=== PATIENT | male | born 1945 | race Caucasian/White ===

== ENCOUNTER 2016-09-27 05:36 | Emergency (ER) | payer BC, OTHER ==
[~2016-09-27] VITALS: Ht 180.3 cm; Wt 84.8 kg
[2016-09-27] MEDS ORDERED: METHYLENE BLUE 0.5% 5MG/ML 10ml AMP IV ONE (06:53)
[2016-09-27] MEDS ORDERED: BUPIVACAINE 0.25% INJ 50ML VIAL ONE (06:53)
[2016-09-27] MEDS ORDERED: LIDOCAINE W/ EPINEPHRINE 1 % INJ 30ML ONE (06:53)
[2016-09-27 07:05] LABS: Urine Bilirubin Negative (Negative); Urine Blood Negative /uL (Negative); Urine Color Yellow (Yellow); Urine Glucose Normal (Normal); Urine Ketone Negative (Negative); Urine Nitrite Negative (Negative); Urine RBC <1 /hpf (0 - 3); Urine Squamous Epithelial Cell FEW /hpf (<5); Urine Urobilinogen Normal (Negative)
[2016-09-27 07:20] LABS: Basophils # (auto) 0 uL; Basophils % (auto) 0.6 % (0.0-2.0); CONDITION Y; Eosinophils # (auto) 0.3 uL; Eosinophils % (auto) 5.6 % (0.0-7.0); Hematocrit 44.6 % (41.0-53.0); Hemoglobin 14.8 g/dL (13.5-17.5); Lymphocytes # (auto) 1.3 uL; Lymphocytes % (auto) 24.4 % (10.0-50.0); Mean Corpuscular Hemoglobin 30.9 pg (28.0-32.0); Mean Corpuscular Hgb Conc. 33.3 g/dL (32.0-36.0); Mean Corpuscular Volume 92.8 fL (80.0-100.0); Mean Platelet Volume 8.4 fL (7.4-10.4); Monocytes # (auto) 0.7 uL; Monocytes % (auto) 12.5 % (0.0-12.0); Neutrophils # (auto) 3.1 uL; Neutrophils % (auto) 56.9 % (37.0-80.0); Platelet Count (auto) 273 10^3/uL (140-450); Red Cell Distribution Width 14.8 % (11.6-16.0); White Blood Cell 5.5 10^3/uL (4.4-10.8)
[2016-09-27 07:39] LABS: Potassium 4.8 mmol/L (3.5-5.1)
[2016-09-27 07:40] LABS: INR 0.97 (0.9-1.15); Partial Thromboplastin Time 26.8 sec (22.64-33.71); Prothrombin Time 10.6 sec (9.37-12.3)
[2016-09-27 07:44] LABS: Albumin 3.5 g/dL (3.4-5.0); BUN/Creatinine Ratio 25.3; Calcium 8.1 mg/dL (8.5-10.1)
[2016-09-27 07:47] LABS: Bilirubin, Total 0.4 mg/dL (0.2-1.0); Total Protein 6.9 g/dL (6.4-8.2)
[2016-09-27 08:00] VITALS: BP 145/97
== END 2016-09-27 08:03 | disposition home or self-care (01) ==
LOC: ER 05:36
DX: R04.0 Epistaxis (principal); M19.90 Unspecified osteoarthritis, unspecified site; E78.5 Hyperlipidemia, unspecified; I25.2 Old myocardial infarction
CPT/HCPCS: 36415; 80053; 81001; 85025; 85610; 85730; 93005; 99285; J2001; J3490; Q9968

== ENCOUNTER 2018-04-28 08:22 | Inpatient (IN) | payer MEDICARE, OTHER ==
[~2018-04-28] VITALS: Ht 180.3 cm; Wt 81.6 kg
[2018-04-28 09:24] LABS: Basophils # (auto) 0 uL; Basophils % (auto) 0.5 % (0.0-2.0); Eosinophils # (auto) 0.1 uL; Hematocrit 47.7 % (41.0-53.0); Hemoglobin 15.7 g/dL (13.5-17.5); Lymphocytes # (auto) 0.8 uL; Lymphocytes % (auto) 18.3 % (10.0-50.0); Mean Corpuscular Volume 94.1 fL (80.0-100.0); Monocytes # (auto) 0.4 uL; Neutrophils # (auto) 3.2 uL; Neutrophils % (auto) 70.2 % (37.0-80.0); Nucleated Red Blood Cells % 0.2 %; Platelet Count (auto) 249 10^3/uL (140-450); Red Blood Cells 5.07 10^6/uL (4.5-5.90); Red Cell Distribution Width 13.9 % (11.8-14.3); White Blood Cell 4.5 10^3/uL (4.4-10.8)
[2018-04-28 09:27] LABS: INR 0.96 (0.9-1.15); Partial Thromboplastin Time 27.5 sec (23.78-33.04); Prothrombin Time 10.3 sec (9.27-12.13)
[2018-04-28 09:34] LABS: Alanine Aminotransferase 34 U/L (16-61); Albumin 3.8 g/dL (3.4-5.0); Anion Gap 8 (5-15); Aspartate Aminotransferase 31 U/L (15-37); BUN/Creatinine Ratio 17.2; Blood Urea Nitrogen 17 mg/dL (7-18); Calcium 8.3 mg/dL (8.5-10.1); Carbon Dioxide 25 mmol/L (21-32); Chloride 103 mmol/L (98-107); GFR African American > 60 mL/min; GFR Non-African American > 60 mL/min; Glucose 169 mg/dL (74-106); Magnesium 2.1 mg/dL (1.6-2.6); Potassium 4.3 mmol/L (3.5-5.1); Sodium 136 mmol/L (136-145)
[2018-04-28 09:39] LABS: Alkaline Phosphatase 108 U/L (45-117); Bilirubin, Total 0.6 mg/dL (0.2-1.0); Total Protein 7.6 g/dL (6.4-8.2)
[2018-04-28] MEDS ORDERED: traZODone HCL 50 MG TAB PO SCH ×2 (10:00→22:00)
[2018-04-28] MEDS ORDERED: NITROGLYCERIN 0.4 MG SL TAB SL PRN (11:00)
[2018-04-28] MEDS ORDERED: HYDROcodone-ACET 5/325MG TAB PO PRN (11:00)
[2018-04-28] MEDS ORDERED: ONDANSETRON HCL 4 MG/2 ML VIAL IV PRN (11:00)
[2018-04-28] MEDS ORDERED: DEXTROSE (50%) 50ML SYRG IV PRN (11:00)
[2018-04-28] MEDS ORDERED: MORPHINE SULFATE 10 MG/ML INJ 1ML SDV IV PRN ×2 (11:00)
[2018-04-28] MEDS ORDERED: MELO1TAB56 PO (11:03)
[2018-04-28] MEDS ORDERED: HYDR-4924 PO (11:03)
[2018-04-28] MEDS ORDERED: TRAZ100T2 PO (11:03)
[2018-04-28] MEDS ORDERED: LOSA25TA40 PO (11:03)
[2018-04-28] MEDS ORDERED: GABA300C10 PO (11:03)
[2018-04-28] MEDS ORDERED: GLIP-115 PO (11:03)
[2018-04-28] MEDS ORDERED: TAMS0.4C36 PO (11:03)
[2018-04-28] MEDS ORDERED: ATOR20TA50 PO (11:03)
[2018-04-28] MEDS ORDERED: MELA3TAB27 PO (11:03)
[2018-04-28] MEDS ORDERED: VENL75TA PO (11:03)
[2018-04-28] MEDS: InsuLIN REG 1unit/0.01ml Soln (100units/ml) SC SCH ×3 (12:00→22:00)
[2018-04-28] MEDS ORDERED: VENLAFAXINE HCL 37.5MG TABLET PO SCH (12:00)
[2018-04-28] MEDS: ACCU-CHEK COMFORT CURVE STRIP VI SCH ×3 (12:00→22:00)
[2018-04-28] MEDS: GABAPENTIN 300 MG CAP PO SCH ×2 (14:11→23:08)
--- NOTE | 2018-04-28 14:40 | NUR ---
Telemetry admit from ER MARISELTOREY admitted to Telemetry unit after SBAR received. Patient oriented to Marycarmen flynn RN, unit, room, bed, and unit policies regarding patient care and visiting hours. Patient now on continuous telemetry monitoring, tele box # 21 and telemetry reading on arrival to unit is SINUS RHYTHM IN THE 60'S. Patient weighed by bedscale and encouraged to call if they need something. All questions and concerns addressed, patient verbalized understanding.
[2018-04-28 17:00] VITALS: BP 140/75
[2018-04-28 17:01] VITALS: BP 142/78
--- NOTE | 2018-04-28 18:00 | NUR ---
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
--- NOTE | 2018-04-28 18:10 | NUR ---
SPOKE TO SHAHRAM LOMELI NP. ORDERS TO CONTACT DR LATIF.
--- NOTE | 2018-04-28 18:10 | NUR ---
PATIENT DENIES CHEST PAIN. AMBULATING IN THE HALLWAY WITH HIS .
--- NOTE | 2018-04-28 18:36 | NUR ---
SPOKE TO DOCTOR LATIF, AWARE OF ELEVATED TROPONIN. ORDERS FOR LOVENOX OBTAINED. WILL PLACE AND CARRY OUT.
[2018-04-28] MEDS ORDERED: ENOXAPARIN SOD 80 MG/0.8ML SYRINGE SC ONE (18:45)
[2018-04-28] MEDS ORDERED: ASPirin-EC 81 mg tab PO ONE (19:30)
--- NOTE | 2018-04-28 20:00 | NUR ---
open note assumed care of pt. awake and alert upon entering room. denied any pain, no s/s distress noted or expressed. pt updated on plan of care. pt aware of left heart cath procedure in the AM. no additional questions at this time. call light in reach. will continue to monitor.
[2018-04-28 22:00] VITALS: BP 127/84
[2018-04-28] MEDS ORDERED: ATORVASTATIN 20 MG TAB PO SCH (22:00)
[2018-04-28] MEDS: METOPROLOL TARTRATE 25 MG TAB PO SCH (23:08)
[2018-04-29 05:50] VITALS: BP 119/75
[2018-04-29] MEDS: InsuLIN REG 1unit/0.01ml Soln (100units/ml) SC SCH ×2 (06:28→11:30)
[2018-04-29] MEDS: ACCU-CHEK COMFORT CURVE STRIP VI SCH ×2 (06:28→11:27)
[2018-04-29] MEDS: GABAPENTIN 300 MG CAP PO SCH ×2 (06:28→13:31)
[2018-04-29 06:42] LABS: Albumin 3.4 g/dL (3.4-5.0); Anion Gap 4 (5-15); Blood Urea Nitrogen 16 mg/dL (7-18); Calcium 8.4 mg/dL (8.5-10.1); Carbon Dioxide 28 mmol/L (21-32); Chloride 107 mmol/L (98-107); Glucose 114 mg/dL (74-106); Magnesium 2.3 mg/dL (1.6-2.6); Potassium 4.2 mmol/L (3.5-5.1); Sodium 139 mmol/L (136-145)
[2018-04-29 06:47] LABS: Alanine Aminotransferase 38 U/L (16-61); Alkaline Phosphatase 95 U/L (45-117); Aspartate Aminotransferase 124 U/L (15-37); BUN/Creatinine Ratio 18.8; Bilirubin, Total 0.6 mg/dL (0.2-1.0); Cholesterol 169 mg/dL (< 200); GFR African American > 60 mL/min; GFR Non-African American > 60 mL/min; HDL Cholesterol 59 mg/dL (40-59); LDL Cholesterol 105 mg/dL (< 100); Total Protein 6.8 g/dL (6.4-8.2); Triglycerides 103 mg/dL (< 150)
[2018-04-29] MEDS ORDERED: IODIXANOL 320MG/ML 100ML BTL IV ONE ×2 (07:12→07:13)
[2018-04-29] MEDS ORDERED: LIDOCAINE 2%HCL (LOCAL ANESTH.) INJ 20ML MDV ONE (07:12)
--- NOTE | 2018-04-29 07:40 | NUR ---
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 patient bathed and shaved.
[2018-04-29 08:35] VITALS: BP 121/78
[2018-04-29] MEDS ORDERED: ANGIOMAX 250 MG VIAL IV ONE (08:51)
[2018-04-29] MEDS ORDERED: MIDAZOLAM HCL 1MG/1ML-2 ML VIAL ONE (08:51)
[2018-04-29] MEDS ORDERED: fentaNYL CITRATE 100 MCG/2 ML VL ONE (08:51)
[2018-04-29] MEDS ORDERED: SODIUM CHL 0.9% 50 ML ONE (08:52)
[2018-04-29] MEDS ORDERED: IOHEXOL 350 MG/ML 100ML IJ ONE (08:52)
[2018-04-29] MEDS ORDERED: CLOPIDOGREL 300 MG TAB ONE (09:28)
[2018-04-29] MEDS ORDERED: ASPirin 81 mg TAB ONE (09:31)
[2018-04-29] MEDS ORDERED: ASPirin-EC 81 mg tab PO SCH (10:00)
[2018-04-29] MEDS ORDERED: NITROGLYCERIN 0.4MG/HR TOPICAL PATCH TD SCH (10:00)
[2018-04-29] MEDS ORDERED: TAMSULOSIN HYDROCHLORIDE 0.4 MG CAP PO SCH (10:00)
[2018-04-29] MEDS ORDERED: CLOPIDOGREL BISULFATE 75 MG TAB PO SCH (10:00)
--- NOTE | 2018-04-29 10:25 | NUR ---
patient returned from recovery after having a heart cath, dressing is c-d-i, denies any pain, no sob, vs are stable, at bedside. pt verbalized understanding to remain in supine position until instructed per order.
--- NOTE | 2018-04-29 12:15 | NUR ---
patient alert and oriented x4 with no distress noted, dressing to right groin is c-d-i, ambulated to the restroom, denies any pain, no s/s of hematoma, site benign.
[2018-04-29 13:00] VITALS: BP 132/72
[2018-04-29] MEDS: METOPROLOL TARTRATE 25 MG TAB PO SCH (13:32)
[2018-04-29] MEDS ORDERED: ALUM & MAG HYDROX-SIMETH LIQ(MAALOX) 30 ML PO PRN (14:30)
[2018-04-29] MEDS ORDERED: CLOP75TA28 PO (14:39)
[2018-04-29] MEDS ORDERED: MET25T PO (14:39)
[2018-04-29] MEDS ORDERED: ATOR20TA50 PO (14:39)
[2018-04-29] MEDS ORDERED: ASP81EC PO (14:39)
[2018-04-29 14:59] VITALS: BP 133/71
--- NOTE | 2018-04-29 16:00 | NUR ---
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
--- NOTE | 2018-04-29 16:02 | NUR ---
patient discharged as ordered, via wheelchair, at bedside.
[2018-04-29] MEDS ORDERED: ATORVASTATIN 20 MG TAB PO SCH (22:00)
[2018-04-30] MEDS ORDERED: CLOPIDOGREL BISULFATE 75 MG TAB PO SCH (10:00)
== END 2018-04-29 14:05 | disposition home or self-care (01) | DRG 250 ==
LOC: ER 08:30 → OVERFLOW 09:50 → TELE-WESTW 14:40
PROVIDERS: ADMIT Nurse Practitioner Acute Care; ATTEND Internal Medicine
PROC: 02703ZZ Dilation of Coronary Artery, One Artery, Percutaneous Approach (ICD-10-PCS; principal; 2018-04-29)
PROC: 4A023N7 Measurement of Cardiac Sampling and Pressure, Left Heart, Percutaneous Approach (ICD-10-PCS; 2018-04-29)
PROC: B2151ZZ Fluoroscopy of Left Heart using Low Osmolar Contrast (ICD-10-PCS; 2018-04-29)
PROC: B2111ZZ Fluoroscopy of Multiple Coronary Arteries using Low Osmolar Contrast (ICD-10-PCS; 2018-04-29)
DX: I21.4 Non-ST elevation (NSTEMI) myocardial infarction (principal); I50.43 Acute on chronic combined systolic (congestive) and diastolic (congestive) heart failure; E11.40 Type 2 diabetes mellitus with diabetic neuropathy, unspecified; E78.5 Hyperlipidemia, unspecified; F41.9 Anxiety disorder, unspecified; I11.0 Hypertensive heart disease with heart failure; I25.10 Atherosclerotic heart disease of native coronary artery without angina pectoris; I70.0 Atherosclerosis of aorta; I08.0 Rheumatic disorders of both mitral and aortic valves; K44.9 Diaphragmatic hernia without obstruction or gangrene; I25.82 Chronic total occlusion of coronary artery; M19.90 Unspecified osteoarthritis, unspecified site; N40.0 Benign prostatic hyperplasia without lower urinary tract symptoms; I25.2 Old myocardial infarction; Z79.84 Long term (current) use of oral hypoglycemic drugs; Z79.899 Other long term (current) drug therapy; Z87.11 Personal history of peptic ulcer disease; Z87.891 Personal history of nicotine dependence; Z95.5 Presence of coronary angioplasty implant and graft; Z90.49 Acquired absence of other specified parts of digestive tract
CPT/HCPCS: 36415; 71045; 80053; 80061; 82962; 83036; 83735; 83880; 84443; 84484; 85025; 85610; 85730; 86141; 93005; 93306; 99152; A6257; G0378; J2250; Q9967

== ENCOUNTER → 2021-04-27 | Day surgery (SDC) | payer MEDICARE, OTHER ==
[2021-04-26 10:08] LABS: Red Cell Distribution Width 13.5 % (11.8-14.3)
[2021-04-26 10:28] LABS: Urine Bacteria NONE SEEN /hpf (None Seen); Urine Blood Negative /uL (Negative); Urine Specific Gravity 1.016 (1.001-1.035); Urine WBC 3 /hpf (0 - 3)
[2021-04-26 10:45] LABS: Hematocrit 30.2 % (41.0-53.0); Hemoglobin 10.5 g/dL (13.5-17.5); Mean Corpuscular Hemoglobin 31.3 pg (28.0-32.0); Mean Corpuscular Hgb Conc. 34.6 g/dL (32.0-36.0); Mean Corpuscular Volume 90.6 fL (80.0-100.0); Red Blood Cells 3.33 10^6/uL (4.5-5.90)
[2021-04-26 10:55] LABS: White Blood Cell 1.2 10^3/uL (4.4-10.8)
[2021-04-26 10:56] LABS: Basophils % (manual) 0 (0.0-2.0); Blast Cells 0; Metamyelocytes % 0; Myelocytes % 0; Promyelocytes % 0; Reactive Lymphocytes 0
[2021-04-26 11:49] LABS: Band Neutrophils % (manual) 8; Eosinophils % (manual) 2 (0-7); Lymphocytes % (manual) 28 (10.0-50.0); Monocytes % (manual) 12 (0-12)
[2021-04-26 13:13] LABS: Potassium 4.4 mmol/L (3.5-5.1)
[2021-04-26 13:14] LABS: Albumin 3.2 g/dL (3.4-5.0); BUN/Creatinine Ratio 15.1; Bilirubin, Total 0.5 mg/dL (0.2-1.0); Calcium 7.8 mg/dL (8.5-10.1); Total Protein 6.3 g/dL (6.4-8.2)
[~2021-04-27] VITALS: Ht 180.3 cm; Wt 77.1 kg
[~2021-04-27] MED LIST: ASPI-394 PO; ATOR20TA50 PO; CLOP75TA28 PO; GABA300C10 PO; GLIP5TAB12 PO; HYDR-4924 PO; LIDOCAINE VISCOUS 2% 15ML UD ONE; LORA-622 PO; LOSA25TA38 PO; MELA3TAB27 PO; MELO1TAB56 PO; MET25T PO; MIDAZOLAM HCL 5 MG/ML-1ML VIAL ONE; OMEP20TA PO; TAMS0.4C36 PO; TRAZ100T3 PO; VENL1TAB99 PO; ceFAZolin 1GM/50ML 50 ML IV ONE; diphenhdrAMINE HCL 50 MG/1 ML VL ONE; fentaNYL CITRATE 100 MCG/2 ML VL ONE
[2021-04-27 11:05] VITALS: BP 136/61
== END | disposition home or self-care (01) ==
LOC: GI 09:35
PROVIDERS: ATTEND Internal Medicine Gastroenterology
DX: R13.10 Dysphagia, unspecified (principal); K29.50 Unspecified chronic gastritis without bleeding; I10 Essential (primary) hypertension; E11.9 Type 2 diabetes mellitus without complications; F32.9 Major depressive disorder, single episode, unspecified; F41.9 Anxiety disorder, unspecified; Z85.850 Personal history of malignant neoplasm of thyroid; Z87.891 Personal history of nicotine dependence; Z95.5 Presence of coronary angioplasty implant and graft; Z98.890 Other specified postprocedural states; Z79.899 Other long term (current) drug therapy; Z20.822 Contact with and (suspected) exposure to COVID-19
CPT/HCPCS: 36415; 43235; 80053; 81001; 85007; 85027; J0690; J1200; J2250; J3010; J7030; U0003; 99152

== ENCOUNTER 2021-06-26 23:23 | Inpatient (IN) | payer MEDICARE, OTHER ==
[~2021-06-26] VITALS: Ht 180.3 cm; Wt 72.5 kg
[~2021-06-26 23:23] MED LIST changes: -LIDOCAINE VISCOUS 2% 15ML UD ONE; -MIDAZOLAM HCL 5 MG/ML-1ML VIAL ONE; -ceFAZolin 1GM/50ML 50 ML IV ONE; -diphenhdrAMINE HCL 50 MG/1 ML VL ONE; -fentaNYL CITRATE 100 MCG/2 ML VL ONE
[2021-06-27 01:30] LABS: Basophils # (auto) 0 10 ^3/uL (0-0.2); Basophils % (auto) 0.1 % (0.0-2.0); Eosinophils # (auto) 0 10 ^3/uL (0-0.8); Eosinophils % (auto) 0.2 % (0.0-7.0); Hematocrit 28.4 % (41.0-53.0); Hemoglobin 9.8 g/dL (13.5-17.5); Lymphocytes # (auto) 0.2 10 ^3/uL (0.4-5.4); Lymphocytes % (auto) 1.3 % (10.0-50.0); Mean Corpuscular Hemoglobin 33.2 pg (28.0-32.0); Mean Corpuscular Hgb Conc. 34.6 g/dL (32.0-36.0); Monocytes # (auto) 1.2 10 ^3/uL (0-1.3); Monocytes % (auto) 10.3 % (0.0-12.0); Neutrophils # (auto) 10.5 10 ^3/uL (1.6-8.6); Neutrophils % (auto) 88.1 % (37.0-80.0); Nucleated Red Blood Cells % 0.2 %; Red Blood Cells 2.95 10^6/uL (4.5-5.90); Red Cell Distribution Width 17.5 % (11.8-14.3); White Blood Cell 11.9 10^3/uL (4.4-10.8)
[2021-06-27 01:31] LABS: Urine Bacteria NONE SEEN /hpf (None Seen); Urine Blood Negative /uL (Negative); Urine Specific Gravity 1.016 (1.001-1.035); Urine WBC <1 /hpf (0 - 3)
[2021-06-27 01:45] LABS: Albumin 3.1 g/dL (3.4-5.0); Calcium 8.5 mg/dL (8.5-10.1); Magnesium 1.7 mg/dL (1.6-2.6); Potassium 4.4 mmol/L (3.5-5.1)
[2021-06-27] MEDS ORDERED: ACETAMINOPHEN 325 MG TAB PO ONE (01:45)
[2021-06-27] MEDS ORDERED: LACTATED RINGER'S 2,000 ML IV ONE (01:45)
[2021-06-27 01:46] LABS: BUN/Creatinine Ratio 23.7
[2021-06-27 01:51] LABS: Bilirubin, Total 0.7 mg/dL (0.2-1.0); Total Protein 6.3 g/dL (6.4-8.2)
[2021-06-27] MEDS ORDERED: CEFEPIME 1 GM in SODIUM CHL 0.9% 50 ML IV ONE (02:45)
[2021-06-27] MEDS ORDERED: VANCOMYCIN 1GM/250ML 250 ML IV ONE (02:45)
[2021-06-27] MEDS ORDERED: VANCOMYCIN PER PHARMACY 0 MG IV SCH (04:15)
[2021-06-27] MEDS ORDERED: SODIUM CHLORIDE 0.9% 1,000 ML IV SCH (04:15)
[2021-06-27] MEDS ORDERED: ONDANSETRON HCL 4 MG/2 ML VIAL IV PRN (04:15)
[2021-06-27] MEDS ORDERED: ACETAMINOPHEN 325 MG TAB PO PRN (04:15)
[2021-06-27] MEDS ORDERED: DEXTROSE (50%) 50ML SYRG IV PRN (05:30)
[2021-06-27] MEDS ORDERED: ALBUMIN 25% 100 ML IV ONE (06:15)
[2021-06-27] MEDS: InsuLIN REG 1unit/0.01ml Soln (100units/ml) SC SCH ×2 (07:00→11:30)
[2021-06-27] MEDS: ACCU-CHEK COMFORT CURVE STRIP VI SCH ×2 (07:01→11:49)
[2021-06-27 07:12] LABS: % Iron Saturation 7.4 % (20-55)
[2021-06-27] MEDS ORDERED: CEFEPIME 1 GM in SODIUM CHL 0.9% 50 ML IV SCH ×2 (08:00→10:00)
[2021-06-27 09:11] VITALS: BP 110/59
[2021-06-27] MEDS ORDERED: ASPirin-EC 81 mg tab PO SCH (10:00)
[2021-06-27] MEDS ORDERED: FAMOTIDINE 20 MG TAB PO SCH (10:00)
[2021-06-27] MEDS ORDERED: ENOXAPARIN SOD 40 MG/0.4 ML SYRINGE SC SCH (10:00)
[2021-06-27] MEDS ORDERED: hydrOXYzine 25 MG TAB or CAP PO SCH (10:00)
[2021-06-27] MEDS ORDERED: LEVO750T64 PO (11:23)
[2021-06-27] MEDS ORDERED: FER325T PO (11:27)
[2021-06-27 12:29] VITALS: BP 134/57
[2021-06-27 13:02] VITALS: BP 134/57
[2021-06-27] MEDS ORDERED: VANCOMYCIN 1GM/250ML 250 ML IV SCH (16:00)
[2021-06-27] MEDS ORDERED: ATORVASTATIN 20 MG TAB PO SCH (22:00)
== END 2021-06-27 13:30 | disposition home or self-care (01) | DRG 179 ==
LOC: ER 23:23 → OVERFLOW 06-27 04:13 → CENTRAL 06-27 08:33
PROVIDERS: ADMIT Internal Medicine; ATTEND Internal Medicine
DX: J69.0 Pneumonitis due to inhalation of food and vomit (principal); I25.10 Atherosclerotic heart disease of native coronary artery without angina pectoris; I50.9 Heart failure, unspecified; D50.9 Iron deficiency anemia, unspecified; E11.51 Type 2 diabetes mellitus with diabetic peripheral angiopathy without gangrene; I11.0 Hypertensive heart disease with heart failure; M19.90 Unspecified osteoarthritis, unspecified site; E78.5 Hyperlipidemia, unspecified; Z20.822 Contact with and (suspected) exposure to COVID-19; C14.0 Malignant neoplasm of pharynx, unspecified; R42 Dizziness and giddiness; Z82.49 Family history of ischemic heart disease and other diseases of the circulatory system; Z87.11 Personal history of peptic ulcer disease; Z87.891 Personal history of nicotine dependence; Z92.21 Personal history of antineoplastic chemotherapy; Z92.3 Personal history of irradiation; Z95.5 Presence of coronary angioplasty implant and graft; Z90.49 Acquired absence of other specified parts of digestive tract
CPT/HCPCS: 36415; 71045; 80053; 81001; 82962; 83540; 83550; 83605; 83615; 83735; 83880; 84484; 85025; 87040; 87086; 93005; 96361; 96365; 96367; G0378; P9047

== ENCOUNTER → 2022-01-11 | Outpatient (CLI) | payer OTHER ==
[~2022-01-11] MED LIST changes: +FER325T PO; +LEVO750T64 PO
[2022-01-11 08:50] LABS: Urine Bacteria NONE SEEN /hpf (None Seen); Urine Blood Negative /uL (Negative); Urine Specific Gravity 1.008 (1.001-1.035); Urine WBC <1 /hpf (0 - 3)
[2022-01-11 08:52] LABS: INR 1.06 (0.9-1.15); Partial Thromboplastin Time 29.1 sec (24.6-33.4)
[2022-01-11 08:54] LABS: Basophils # (auto) 0 10 ^3/uL (0-0.2); Basophils % (auto) 0.9 % (0.0-2.0); Eosinophils # (auto) 0.2 10 ^3/uL (0-0.8); Eosinophils % (auto) 4.3 % (0.0-7.0); Hematocrit 36.4 % (41.0-53.0); Hemoglobin 12.3 g/dL (13.5-17.5); Lymphocytes # (auto) 0.5 10 ^3/uL (0.4-5.4); Lymphocytes % (auto) 12.8 % (10.0-50.0); Mean Corpuscular Hemoglobin 31.3 pg (28.0-32.0); Mean Corpuscular Hgb Conc. 33.6 g/dL (32.0-36.0); Mean Corpuscular Volume 93.1 fL (80.0-100.0); Monocytes # (auto) 0.5 10 ^3/uL (0-1.3); Monocytes % (auto) 13.4 % (0.0-12.0); Neutrophils # (auto) 2.8 10 ^3/uL (1.6-8.6); Neutrophils % (auto) 68.6 % (37.0-80.0); Nucleated Red Blood Cells % 0.1 %; Red Blood Cells 3.91 10^6/uL (4.5-5.90); Red Cell Distribution Width 14.3 % (11.8-14.3); White Blood Cell 4.1 10^3/uL (4.4-10.8)
[2022-01-11 09:26] LABS: Albumin 3.2 g/dL (3.4-5.0); Calcium 8.2 mg/dL (8.5-10.1)
[2022-01-11 09:30] LABS: BUN/Creatinine Ratio 14.5; Bilirubin, Total 0.4 mg/dL (0.2-1.0); Total Protein 6.2 g/dL (6.4-8.2)
== END | disposition home or self-care (01) ==
LOC: LAB 08:14
DX: H25.11 Age-related nuclear cataract, right eye (principal)
CPT/HCPCS: 36415; 80053; 81001; 82306; 85025; 85049; 85610; 85730